=== PATIENT | female | born 1990 | race Caucasian/White ===

== ENCOUNTER 2017-08-09 08:53 | Emergency (ER) | payer OTHER ==
[2017-08-09] MEDS: KETOROLAC 60 MG INJ IM (11:21)
[2017-08-09] MEDS: ONDANSETRON (ODT) 4 MG TAB ODT (11:21)
== END 2017-08-09 12:21 | disposition home or self-care (01) ==
LOC: FTE 08:53
DX: R51 Headache (principal)
CPT/HCPCS: 96372; 99284-25

== ENCOUNTER 2017-08-22 11:25 | Emergency (ER) | payer OTHER ==
[2017-08-22] MEDS: DIPHTH/TET/ACEL PERTUSS (ADULT) 0.5 ML VIAL IM* (13:41)
== END 2017-08-22 15:17 | disposition home or self-care (01) ==
LOC: FTE 11:25
DX: S61.012A Laceration without foreign body of left thumb without damage to nail, initial encounter (principal); W26.0XXA Contact with knife, initial encounter; Y92.9 Unspecified place or not applicable; Z23 Encounter for immunization
CPT/HCPCS: 12001; 90471; 90715; 99283-25

== ENCOUNTER 2017-08-25 18:49 | Emergency (ER) | payer OTHER | END 2017-08-25 19:29 | disposition home or self-care (01) | LOC: FTE 18:49 → E/R 19:29 | DX: Z48.01 Encounter for change or removal of surgical wound dressing (principal) | CPT/HCPCS: 99281; Z7502 ==

== ENCOUNTER 2017-08-29 18:14 | Emergency (ER) | payer OTHER | END 2017-08-29 19:19 | disposition home or self-care (01) | LOC: E/R 19:19 → FTE 18:14 | DX: Z48.02 Encounter for removal of sutures (principal) | CPT/HCPCS: 99281; Z7502 ==

== ENCOUNTER 2017-10-25 09:13 | Emergency (ER) | payer OTHER | END 2017-10-25 11:15 | disposition home or self-care (01) | LOC: FTE 09:13 | DX: J02.9 Acute pharyngitis, unspecified (principal) | CPT/HCPCS: 99283; Z7502 ==

== ENCOUNTER 2018-01-28 11:21 | Emergency (ER) | payer OTHER ==
[2018-01-28 13:45] LABS: D-DIMER < 220.00 ng/ml (<460)
== END 2018-01-28 14:54 | disposition home or self-care (01) ==
LOC: FTE 11:21
DX: R06.02 Shortness of breath (principal)
CPT/HCPCS: 36415; 71045; 81025; 85378; 93005; 99285-25